=== PATIENT | male | born 1945 | race Caucasian/White ===

== ENCOUNTER → 2016-12-11 | Outpatient (CLI) | payer MEDICARE ==
[2016-12-11 09:14] LABS: MEAN PLATELET VOLUME 9.2 FL (6.0-9.5); PLATELET COUNT 144 10^3uL (150-450); WHITE BLOOD COUNT 6.95 10^3uL (4.0-11.0)
[2016-12-11 09:27] LABS: MEAN CORPUSCULAR VOLUME 100 FL (80-100)
[2016-12-11 09:28] LABS: ANION GAP 11.9 MEQ/L (3-15); BAND NEUTROPHILS % 0 % (0-6); EOSINOPHILS % 2 % (0-4); LYMPHOCYTES # 1.5 #; MONOCYTES # 0.1 #; MONOCYTES % 2 % (3-11); RBC MORPH NORMAL (NORMAL); SEGMENTED NEUTROPHILS % 74 % (51-67); TOTAL CELLS COUNTED 100
== END ==
LOC: LAB 08:56
PROVIDERS: ATTEND Surgery
DX: K43.2 Incisional hernia without obstruction or gangrene (principal); E27.1 Primary adrenocortical insufficiency
CPT/HCPCS: 36415; 80048; 85007; 85027

== ENCOUNTER 2016-12-17 06:59 | Day surgery (SDC) | payer MEDICARE ==
[~2016-12-17] VITALS: Ht 182.9 cm; Wt 91.4 kg
[~2016-12-17 06:59] MED LIST: ACETAMINOPHEN 500 MG TAB (TYLENOL) PO SCH; LACTATED RINGERS 1,000 ML IV SCH; SODIUM CHLORIDE FLUSH 3 ML SYR IV PRN; ceFAZolin 2,000 MG in SODIUM CHLORIDE VIAL (PF) 20 ML IV SCH; oxyCODONE IMMEDIATE RELEASE 5 MG (OXYIR) TAB PO SCH
[2016-12-17 07:12] VITALS: BP 177/68
[2016-12-17] MEDS ORDERED: BUPIVACAINE/EPINEPHRINE 0.25%-1:200,000 (MARCAINE) 30 ML VIAL INJ ONE (07:29)
[2016-12-17] MEDS ORDERED: LIDOCAINE/EPINEPHRINE 1% 1:100,000 (XYLOCAINE) 30 ML VIAL INJ ONE (07:29)
[2016-12-17] MEDS ORDERED: ALFENTANIL 500 MCG/ML (ALFENTA) 5 ML AMP IV ONE (07:44)
[2016-12-17] MEDS ORDERED: PROPOFOL 20 ML IV ONE ×2 (07:45)
[2016-12-17] MEDS ORDERED: MIDAZOLAM 2 MG/2 ML (VERSED) VIAL ONE (07:45)
[2016-12-17] MEDS ORDERED: methylPREDNISolone 125 MG (Solu-MEDROL) VIAL ONE (08:12)
[2016-12-17] MEDS ORDERED: ONDANSETRON 2 MG/ML (Z0FRAN) 2 ML VIAL ONE (08:18)
[2016-12-17] MEDS ORDERED: diphenhydrAMINE 50 MG/ML INJ (BENADRYL) ONE (08:18)
[2016-12-17] MEDS ORDERED: SUCCINYLCHOLINE 20 MG/ML 10 ML VIAL ONE (08:54)
[2016-12-17] MEDS ORDERED: ePHEDrine SULFATE 50 MG/ML 1 ML AMP ONE (09:24)
[2016-12-17 10:56] VITALS: BP 126/90
[2016-12-17] MEDS ORDERED: HYDROcodone/APAP 5 MG/325 MG (NORCO) TAB PO PRN (11:25)
[2016-12-17] MEDS ORDERED: ONDANSETRON 2 MG/ML (Z0FRAN) 2 ML VIAL IV PRN (11:25)
[2016-12-17 11:44] VITALS: BP 132/76
[2016-12-17 12:27] VITALS: BP 139/77
== END 2016-12-17 12:40 | disposition home or self-care (01) ==
LOC: ASC 06:59
PROVIDERS: ATTEND Surgery
DX: K43.2 Incisional hernia without obstruction or gangrene (principal); J44.9 Chronic obstructive pulmonary disease, unspecified; M06.9 Rheumatoid arthritis, unspecified; M81.0 Age-related osteoporosis without current pathological fracture; I73.9 Peripheral vascular disease, unspecified; E27.1 Primary adrenocortical insufficiency; Z79.52 Long term (current) use of systemic steroids
CPT/HCPCS: 49560; 49568; 88305; A9270; C1781; J0330; J0690; J1200; J2250; J2930; J7050; J7120

== ENCOUNTER → 2016-12-19 | Emergency (ER) | payer MEDICARE ==
[~2016-12-19] VITALS: Ht 182.9 cm; Wt 91.0 kg
--- NOTE | 2016-12-19 16:04 | NUR ---
PATIENT ATTEMPTS TO URINATE. IS UNABLE TO GO MORE THAN A FEW DROPS OF CLEAR, YELLOW URINE.
[2016-12-19 16:46] LABS: BILIRUBIN,URINE Negative (Negative); CLARITY,URINE Clear; COLOR,URINE Yellow; GLUCOSE, URINE (UA) Negative (Negative); LEUKOCYTE ESTERASE ,URINE Negative (Negative); UROBILINOGEN,URINE 0.2 mg/dL (0.2-1.0)
[2016-12-19 16:55] LABS: RBC,URINE >100 /HPF; URINE CENTRIFUGED VOLUME 12 mL
--- NOTE | 2016-12-19 17:57 | NUR ---
sigala placed , instructions given, cecilio called for consult by dr. wheat, cecilio wants pt to be on meds for urinary problem and to remove the sigala
[2016-12-19 18:01] VITALS: BP 165/75
== END | disposition home or self-care (01) ==
LOC: ED 15:23
DX: R33.9 Retention of urine, unspecified (principal); Z98.890 Other specified postprocedural states
CPT/HCPCS: 51702; 51798; 81003; 81015; 99283